=== PATIENT | male | born 1950 | race Caucasian/White ===

== ENCOUNTER 2021-12-18 14:21 | Outpatient (REF) | payer OTHER, SELFPAY ==
--- OUTSIDE RECORDS SUMMARY | 2021-12-18 14:22 | XMS_ITS ---
:1950 Author Care Team Providers Name [facility] Unavailable Allergies Code Code System Name Reaction Severity Status Onset NKDA ? Medications Name Status Start Date Stop Date ? ? Augmentin 875 mg-125 mg tablet Active ? N ot available Take 1 tablet every 12 hours by oral route for 10 days. Flonase Allergy Relief 50 mcg/actuation nasal spray,suspension A ctive ? Not available Breda one spray into each nostril twice a day for 14 days Tessalon Perles 100 mg capsule Active ? N ot available Take 1 capsule 3 times a day by oral route as needed for 10 day s. Zetia Active ? Not available Problems Name Status Onset Date Source ? Hypercholesterolemia Active 09/15/2021 ? Procedures Notes: hernia surgery Results Lab Results Date Name Specimen Result Interpretation Description Value Range Status Address ? 09/15/2021 Rapid SARS CoV ? Rapid Negative ? ? Cmdny_ 2 Ag, [place], COVID[place]: Respiratory Antigen [address] Specimen ([address] [place] Positive) Past Encounters 09/15/2021 Exposure to SARS-CoV-2; Cough; Acute Madeline [facility] CLARA Bianchi: [address], [place] [address], Ph. Social History Tobacco Smoking Status Never Smoker Vaccine List None recorded. Plan of Care Patient Instructions Thank you for visiting [facility]. The re are two ways to view your lab results: : 1. The [employer] cameron is availa ble to all patients 18 and older in the Cameron Store and [employer]. First-time cameron users will need to create an account; please note you?ll need to select a login and password for the cameron versus kaya beaver using your patient portal login credentials. Your lab results will be posted to the [employer] cameron as soon as they?re available. 2. Via email , as soon as lab results are available. If you don?t receive an email within the estimated time frame, give our Aftercare team a call at [phone]. Test Name: SARS-CoV-2 rapid ag (COVID-19); Result: NEGATIVE Your test today for COVID-19 infection w as NEGATIVE. The next steps in your care depend on your whether you are having symptoms or had an exposure to Covid-19: NOTE: an EXPOSURE is defined as spending more than 10 minutes (within a 24 period) within an enclosed space with an individual who tested positive for Covid-19 If NO EXPOSURE to COVID-19: If you are ASYMPTOMATIC and NO KNOWN EX POSURE: You are cleared to go back to work or school since you have no symptoms suggestive of COVID-19, have not had a high risk exposure to a person known to hav e COVID-19, and your Rapid Covid Test re sult is negative. If you have SYMPTOMS with NO KNOWN EXPO SURE to COVID-19: Your medical provider may have sent a second test to an outside lab to confirm that today s test was truly negative. The results of this second test (PCR technique) will be published to your [facility] patient portal ([email or web address]) as soon as they are available (5-7 days on average). For now, we ask that you go home under strict QUARANTINE, m onitor for any worsening symptoms and re turn for re-evaluation if your symptoms become severe. If HIGH-RISK EXPOSURE: FULLY VACCINATED: If you are fully vac cinated and boosted (with the booster at least 2 weeks before the first date of exposure) or you are not yet eligible for a booster, NO QUARANTINE IS REQUIRED. Yo u should wear a well-fitting mask while aroundothers for 10 days after the last date of exposure. NOT FULLY VACCINATED (including vaccin ated and eligible for a booster but not yet boosted): You should QUARANTINE for 5 DAYS, then wear a well-fitting mask while around others for an additional 5 days. It is recommended that you TEST at DAY 5 if possible (either PCR or Rapid Antigen) If you DEVELOP SYMPTOMS: QUARANTINE an d SEEK TESTING. In this situation, quarantine would end when the test is negative. If testing is not done, isolate according to the guidance above (Vaccinated vs NOT-Vaccinated). Be Safe MONITOR YOUR SYMPTOMS : If at any point your symptoms become worse or severe such as fever that will not improve with medicine, shortness of breath, chest pain or discomfort, abdominal pain, inability to tolerate eating and drinking, please return to [facility] or go to the closest Emergency Room. QUARANTINE INFO : If you were asked to quarantine yourself, please stay in your own part of the house away from everyone else, using your own bedroom and bathroom, if possible. If you need to be in a [facility] area ensure that both you and anyo ne else around you is wearing a mask.You will be considered free of contagious COVID-19 10 days after your symptoms began ? if your symptoms have significa ntly improved and you have not had a fev er for at least 24 hours (without using fever reducing medications like acetaminophen or ibuprofen). Please continue to follow all personal safety practices when outside the home, including (a) wearing a nose and mouth covering at all times when around people outside of your household, (b) social distancing, (c) hand hygiene, and (d) avoidance of contact with people with known or possible COVID-19. Reminders Provider Appointments None recorded. ? ? Lab None recorded. ? ? Referral None recorded. ? ? Procedures None recorded. ? ? Surgeries None recorded. ? ? Imaging None recorded. ? ? Vitals Height Weight BMI Blood Pressure 5 ft 8 in 139 lbs 16 oz 21.3 kg/m2 151/73 mm[Hg]
[2021-12-20 12:36] LABS: COVID-19 RT-PCR UVMMC Result Negative (Negative)
== END 2021-12-18 14:22 | disposition home or self-care (01) ==
LOC: LBN 14:21
PROVIDERS: Visit Provider Nurse Practitioner Family
DX: Z20.822 Contact with and (suspected) exposure to COVID-19 (principal)
CPT/HCPCS: U0003